=== PATIENT | female | born 1960 | race Caucasian/White ===

== ENCOUNTER 2021-01-10 17:13 | Inpatient (IN) | payer BC, SELFPAY ==
[2021-01-10] VITALS (7 sets, daily range): BP systolic 94–160; BP diastolic 65–81; PULSE 65–83; RESP 18–20; TEMP 36.4–36.7; O2SAT 93–100; BMI 21.4
--- NOTE | ~2021-01-10 | CT_ITS ---
EXAMINATION: CT brain wo con DATE: 01/10/2021 18:36 INDICATION: Altered level of consciousness, dizziness and recent falls TECHNIQUE: Computed tomography (CT) of the head was performed without intravenous contrast. The dose- length product was 605.33 mGy-cm. Automated exposure control and iterative reconstruction technique w ere employed. COMPARISON: None FINDINGS: No acute intracranial hemorrhage, infarction, mass or mass effect. No ventriculomegaly or m idline shift. Paranasal sinuses and mastoids are pneumatized. No depressed skull fractures. Generaliz ed atrophy. There are scattered mild periventricular and subcortical white matter changes, most likel y related to small vessel ischemic disease (microangiopathy). IMPRESSION: 1. No acute intracranial abnormality. Reviewed, dictated and finalized at location [employer]
--- NOTE | 2021-01-10 17:48 | ECG_ITS ---
Measurements Intervals [place] Rate: 72 P: 81 NM: 154 QRS: 69 QRSD: 76 T: 61 QT: 387 QTc: 424 Interpretive Statements SINUS RHYTHM INCOMPLETE RIGHT BUNDLE BRANCH BLOCK BORDERLINE ST-T WAVE ABNORMALITY- ANTEROLAT/INF LEADS BASELINE ARTIFACT- II, III, AVR, AVL, AVF BORDERLINE ECG Electronically Signed On 01-10-2021 20:16:56 [employer]ARN[employer] by Vick Cantor D.O.
[2021-01-10 18:22] LABS: Basophils Absolute Auto 0.06 K/mm3 (0.00-0.10); Basophils Percent Auto 0.7 % (0.0-1.0); Eosinophils Absolute Auto 0.04 K/mm3 (0.02-0.50); Eosinophils Percent Auto 0.5 % (1.0-6.0); Immature Granulocyte Absolute 0.02 K/mm3 (0.00-0.00); Immature Granulocyte Percent A 0.2 % (0.0-0.0); Lymphocytes Absolute Auto 2.16 K/mm3 (1.10-4.50); Lymphocytes Percent Auto 24.3 % (18.0-42.0); Mean Corpuscular HGB Conc 36.8 g/dL (32.0-36.0); Mean Corpuscular Hemoglobin 33.3 pg (27.0-31.0); Mean Corpuscular Volume 90.3 fL (78.0-102.0); Mean Platelet Volume 8.3 fl (9.2-11.8); Monocytes Absolute Auto 1.09 K/mm3 (0.10-0.90); Monocytes Percent Auto 12.3 % (2.0-11.0); Neutrophils Absolute Auto 5.5 K/mm3 (1.7-7.2); Platelet Count Result 420 K/mm3 (150-420); Red Blood Count 4.21 M/mm3 (4.20-5.40); Red Cell Distribution Width 14.3 % (11.6-14.4); White Blood Count 8.9 K/mm3 (4.8-10.8)
[2021-01-10 18:42] LABS: Alanine Aminotransferase 23 U/L (14-59); Albumin Level 4.2 g/dL (3.4-5.0); Alkaline Phosphatase 89 U/L (46-116); Anion Gap 10 mmol/L (8-16); Aspartate Amino Transferase 18 U/L (15-37); Bilirubin,Total 0.6 mg/dL (0.00-1.00); Blood Urea Nitrogen 14 mg/dL (7-18); Calcium 9.6 mg/dL (8.5-10.1); Carbon Dioxide 28 mmol/L (21-32); Chloride 76 mmol/L (98-108); Estimated CRCL calculation 46 ml/min; Estimated Glomerular Filt Rate 56; Glucose 92 mg/dL (70-99); Lactic Acid Reflex 1.1 mmol/L (0.4-2.0); Osmolality Calculated 238 mOsm/kg (285-295); Potassium 2.6 mmol/L (3.5-5.1); Total Protein 7.6 g/dL (6.4-8.2)
[2021-01-10 18:43] LABS: Troponin I 5.5 ng/L (0.00-60.4)
[2021-01-10 18:44] LABS: Ethanol 4 mg/dL (0-6)
[2021-01-10 18:48] LABS: Sodium 114 mmol/L (136-145)
[2021-01-10] MEDS: POTASSIUM CHLORIDE 20 MEQ TABLET 40 MEQ PO (19:40)
--- NOTE | 2021-01-10 20:10 | ADMGEN ---
This patient, Albert Zhao, was admitted to 2nd Floor Room 209-1. Patient oriented to hospital policies and general routines including ID bracelet, bed and alarms, visiting hours, pain management, procedures, bathroom and other care routines, personal items, smoking policy, room service/diet. Patient encouraged to report perceived risks to care and to ask questions if they do not understand what they are told or what they should do.
--- NOTE | 2021-01-10 20:13 | PC.NURSE ---
telemetry applied and alarms activated
--- NOTE | 2021-01-10 20:23 | ED.DIZZY ---
HPI - Dizziness General Chief Complaint: Dizziness Stated Complaint: dizzy Source: patient Mode of arrival: ambulatory Limitations: no limitations History of Present Illness HPI Narrative: Pt came to ED after hx of stopping drinking about 3 days ago. She states today she was walking and became very weak and she my body just went a different way and ended up on the ground. She tells me she has been more confused than normal, and even drove down the road on the wrong side. She just lost her brother a few days ago and has his on . She hasnt drank in last 3 days, and family reports is is defintely an alcoholic. SHe is generally a poor historian, and mildly difficult to obtain a history from. SHe is alert, and states she never passed out, she was concious the entire time. But she does state that position changes make her dizzy. MD elicited complaint: lightheadedness and difficulty walking Onset (ago): hour(s) Timing: sudden onset Severity: moderate Description: lightheadedness and difficulty walking Context: other (quit drinking etoh, but pt states she drinks 8-10 water bottles a day+) History of similar symptoms: No Exacerbating factors: change in body position and standing Relieving factors: remaining still Associated symptoms: denies other symptoms Related Data Home Medications Medication Instructions Recorded Confirmed lisinopril-hydrochlorothiazide 1 tablet PO DAILY 01/10/21 01/10/21 metoprolol tartrate 50 mg PO Q12H 01/10/21 01/10/21 Allergies Allergy/AdvReac Type Severity Reaction Status Date / Time Penicillins Allergy Intermediate Unknown Verified 01/10/21 17:51 Review of Systems Constitutional: Constitutional: Reports no additional constitutional complaints and Reports weakness Eyes: Eyes: Reports no additional eye complaints ENT: Reports system reviewed and no additional complaints, except as documented, Denies dysphagia, Reports dizziness, Denies epistaxis, Denies nasal congestion and Denies sore throat Cardiovascular: Cardiovascular: Reports no additional cardiovascular complaints, Denies chest pain, Denies rapid heart rate, Denies radiating jaw, neck or arm pain and Denies slow heart rate Respiratory: Respiratory: Reports no additional respiratory complaints, Denies chest congestion, Denies cough, Denies dyspnea and Denies wheezing Gastrointestinal: Gastrointestinal: Denies abdominal pain, Denies bloating, Denies constipation, Denies heartburn, Denies diarrhea, Denies nausea and Denies vomiting Genitourinary: Genitourinary: Reports no additional female genitourinary complaints Musculoskeletal: Musculoskeletal: Reports no additional musculoskeletal complaints Comments: muscles just dont act right Integumentary/Breasts: Skin/Breast: Reports system reviewed and no additional complaints, except as docu Neurologic: Reports system reviewed and no additional complaints, except as documented Psychiatric: Psychiatric: Reports no additional psychiatric complaints Endocrine: Endocrine: Reports no additional endocrine complaints Hematologic/Lymphatic: Hematologic/Lymphatic: Reports no additional hematologic/lymphatic complaints Allergic/Immunologic: Allergic/Immunologic: Reports no additional allergic/immunologic complaints PMFSH Past Medical History Medical History HTN (hypertension) Social History Social History (Updated 01/10/21 @ 20:30 by Yana Perea MD) Alcohol intake: current Substance use: unknown Living arrangements: alone Gender identity (if verbalized by the patient): Female Exam Const: General: healthy appearing, no acute distress and alert; No confusion Nutritional Appearance: well nourished and thin Orientation/consciousness: patient oriented x3 Limitations: No altered mental status HENMT: Head: normal to inspection Ears: TM abnormal Mouth: Yes Normal oral and palatal mucosa present and Yes m
[2021-01-10] MEDS: LACTATED RINGERS 1,000 ML 125 ML IV CONT (20:45)
[2021-01-10] MEDS: METOPROLOL TARTRATE 50 MG TAB PO (21:08)
--- NOTE | 2021-01-11 01:50 | PC.NURSE ---
pt up to bsc, had liquid brown stool, pt states she had not had a bm for several days so she took a stool softener prior to coming to hospital. Pt denies any other needs at this time, iv fluids infusing per order, tele continues to monitor and alarms on
[2021-01-11 03:37] VITALS: BP 95/55; PULSE 65; RESP 18; TEMP 36.8; O2SAT 97
[2021-01-11 03:50] LABS: Add Urine Microscopic? NO; Appearance Urine Clear (Clear); Bilirubin Urine Negative (Negative); Blood Urine Negative (Negative); Color Urine Yellow (Yellow); Glucose Urine UA Negative (Negative); Ketones Urine Negative (Negative); Leukocyte Esterase Ur Negative LEU/UL (Negative); Nitrate Urine Negative (Negative); Protein Urine Negative (Negative); Specific Grav Ur <= 1.005 (1.010-1.020); Urobilinogen Urine 0.2 mg/dL (0.2-1.0)
[2021-01-11] MEDS: LACTATED RINGERS 1,000 ML 125 ML IV CONT (04:35)
[2021-01-11 05:40] LABS: Anion Gap 9 mmol/L (8-16); Blood Urea Nitrogen 11 mg/dL (7-18); Calcium 9.4 mg/dL (8.5-10.1); Carbon Dioxide 29 mmol/L (21-32); Chloride 86 mmol/L (98-108); Estimated CRCL calculation 48 ml/min; Estimated Glomerular Filt Rate 59; Glucose 97 mg/dL (70-99); Osmolality Calculated 257 mOsm/kg (285-295); Potassium 3.4 mmol/L (3.5-5.1); Sodium 124 mmol/L (136-145)
[2021-01-11 07:45] VITALS: BP 98/58; PULSE 77; RESP 18; TEMP 36.8; O2SAT 97
[2021-01-11] MEDS: POTASSIUM CHLORIDE 20 MEQ TABLET 40 MEQ PO ×2 (09:08→11:04)
[2021-01-11 11:48] VITALS: BP 112/61; PULSE 66; PULSE 67; RESP 18; TEMP 36.9; O2SAT 95
--- NOTE | 2021-01-11 12:09 | PM.IMHP ---
H&P: HPI History of Present Illness Date/Time: 01/11/21 12:09 <BEVERLY De La Cruz - Last Filed: 01/11/21 13:27> Chief Complaint: Altered mental status, generalized weakness <BEVERLY De La Cruz - Last Filed: 01/11/21 13:27> Narrative: Albert Zhao is a 60 year old female that presented to ED with altered mental status, generalized weakness post fall. Patient has a past medical medical history of hypertension and alcohol abuse. Patient noted that for the past 2weeks she has had nausea vomiting and diarrhea with a decreased appetite due to a viral infection. Patient noted that she did visit her primary care physician and she was given medication she is unsure of the medication she received. I am awaiting a call back from her primary care physician. Patient noted that for the last several days she has been confused with weakness. On admission patient sodium was 114, potassium 2.6, chloride 76. All other labs within normal limits including lactic acid including alcohol level, CT of the head unremarkable, EKG sinus rhythm. Patient is being allowed admitted for electrolyte imbalance and dehydration with altered mental status. During this assessment patient know that her condition has greatly improved she is alert and orientated x1 and her weakness has improved. She also notes that her appetite has improved as well. I did have a discussion with her son and updated him on her plan of care. The patient denies SOB, CP, palpitation, extremity numbness, lightheadedness, dizziness, constipation, diarrhea, chills, or fever. Due to hypotension plan to hold patient hypertension medication. Nurse informed me that patient had home medication and had to take her home medication which included lisinopril with hydrochlorothiazide and metoprolol. Patient sodium level may worsen due to hydrochlorothiazide we will closely monitor. Spoke with patient's primary care physician office patient was recently seen for viral gastroenteritis no medication prescribed. Disposition: Plan to discharge patient tomorrow morning if her electrolytes are balanced. Patient had a recent in the family and she needs to attend a weight and . <BEVERLY De La Cruz - Last Filed: 01/11/21 13:27> Review of Systems Review of Systems: All systems reviewed & are unremarkable except as noted in HPI and below (12 point system review) <BEVERLY De La Cruz - Last Filed: 01/11/21 13:27> [facility], [facility] Past Medical History Medical History: Medical History (Updated 01/11/21 @ 13:07 by BEVERLY De La Cruz) HTN (hypertension) <BEVERLY De La Cruz - Last Filed: 01/11/21 13:27> Social History Social History: Social History (Updated 01/10/21 @ 20:30 by Yana Perea MD) Smoking packs per day: 1 Smoking cigarettes per day: 20.0 Years smoked: 30 Smoking pack-years: 30.00 Smoking status: Current every day smoker Tobacco type: cigarettes Second hand tobacco smoke exposure: Yes Alcohol intake: current Drinks per week: 8 Substance use: never Living arrangements: alone Gender identity (if verbalized by the patient): Female Spiritual care concerns: No <BEVERLY De La Cruz - Last Filed: 01/11/21 13:27> Meds Home Medications and Allergies Home medications: Home Medications Medication Instructions Recorded Confirmed Type lisinopril-hydrochlorothiazide 1 tablet PO DAILY 01/10/21 01/10/21 History metoprolol tartrate 50 mg PO Q12H 01/10/21 01/10/21 History <BEVERLY De La Cruz - Last Filed: 01/11/21 13:27> Allergies/Adverse reactions: Allergies Allergy/AdvReac Type Severity Reaction Status Date / Time Penicillins Allergy Intermediate Unknown Verified 01/10/21 17:51 <BEVERLY De La Cruz - Last Filed: 01/11/21 13:27> Vital Signs Vital Signs - 24 hr 01/10/21 17:41 01/10/21 18:12 01/10/21 19:59 Temperature 98.0 F Pulse Rate 79 73 74 Respiratory
--- NOTE | 2021-01-11 14:30 | PC.NURSE ---
Up to bathroom with stand by assist, tolerated well
[2021-01-11 16:00] VITALS: BP 87/52; PULSE 69; PULSE 70; RESP 18; TEMP 37.1; O2SAT 99
[2021-01-11 18:27] LABS: Troponin I 4.7 ng/L (0.00-60.4)
[2021-01-11 18:40] LABS: Alanine Aminotransferase 24 U/L (14-59); Albumin Level 3.7 g/dL (3.4-5.0); Alkaline Phosphatase 84 U/L (46-116); Anion Gap 10 mmol/L (8-16); Aspartate Amino Transferase 17 U/L (15-37); Bilirubin,Total 0.4 mg/dL (0.00-1.00); Blood Urea Nitrogen 9 mg/dL (7-18); Carbon Dioxide 27 mmol/L (21-32); Chloride 91 mmol/L (98-108); Estimated CRCL calculation 50 ml/min; Estimated Glomerular Filt Rate > 60; Glucose 126 mg/dL (70-99); Osmolality Calculated 266 mOsm/kg (285-295); Potassium 3.9 mmol/L (3.5-5.1); Sodium 128 mmol/L (136-145); Total Protein 6.9 g/dL (6.4-8.2)
[2021-01-11 19:26] VITALS: PULSE 77
[2021-01-11 19:42] VITALS: BP 125/74; PULSE 76; RESP 18; TEMP 36.8; O2SAT 98
[2021-01-11] MEDS: METOPROLOL TARTRATE 50 MG TAB PO (20:51)
[2021-01-12] VITALS: BP 81/72; PULSE 66; PULSE 72; RESP 20; TEMP 36.9; O2SAT 93
[2021-01-12 03:58] VITALS: PULSE 68
[2021-01-12 04:00] VITALS: BP 107/74; PULSE 65; RESP 18; TEMP 37.1; O2SAT 97
[2021-01-12 05:48] LABS: Hematocrit 40.5 % (35.0-49.0); Hemoglobin 13.4 g/dL (12.0-15.0); Mean Corpuscular HGB Conc 33.1 g/dL (32.0-36.0); Mean Corpuscular Hemoglobin 32.8 pg (27.0-31.0); Mean Platelet Volume 8.6 fl (9.2-11.8); Platelet Count Result 422 K/mm3 (150-420); Red Blood Count 4.09 M/mm3 (4.20-5.40); Red Cell Distribution Width 14.9 % (11.6-14.4); White Blood Count 6.8 K/mm3 (4.8-10.8)
[2021-01-12 06:03] LABS: Alanine Aminotransferase 25 U/L (14-59); Albumin Level 3.8 g/dL (3.4-5.0); Alkaline Phosphatase 76 U/L (46-116); Anion Gap 11 mmol/L (8-16); Aspartate Amino Transferase 23 U/L (15-37); Bilirubin,Total 0.4 mg/dL (0.00-1.00); Blood Urea Nitrogen 7 mg/dL (7-18); Calcium 9.1 mg/dL (8.5-10.1); Carbon Dioxide 24 mmol/L (21-32); Chloride 91 mmol/L (98-108); Estimated CRCL calculation 58 ml/min; Estimated Glomerular Filt Rate > 60; Glucose 88 mg/dL (70-99); Osmolality Calculated 259 mOsm/kg (285-295); Potassium 4.6 mmol/L (3.5-5.1); Sodium 126 mmol/L (136-145); Total Protein 6.6 g/dL (6.4-8.2)
[2021-01-12 08:00] VITALS: BP 121/74; PULSE 69; PULSE 74; RESP 18; TEMP 36.7; O2SAT 100
--- NOTE | 2021-01-12 08:32 | PM.DS ---
DS: Admitting Diagnosis Admitting Diagnosis Admitting Diagnosis: Electrolyte imbalance DS: Discharge Diagnosis Discharge Diagnosis (1) Acute hyponatremia: Code(s): E87.1 - Hypo-osmolality and hyponatremia Status: Acute Assessment and Plan: Improved Secondary to dehydration caused by nausea vomiting diarrhea Patient received IV fluid in the ED per Dr. Gallegos IV fluid DC he will monitor CMP every 6hr and treat as needed Sodium-->114-->124-->128-->126 Patient will discharge home with sodium and potassium supplement for 7 days of repeat CMP in 3 days with results going to her primary care physician (2) Acute hypokalemia: Code(s): E87.6 - Hypokalemia Status: Acute Assessment and Plan: Resolved Secondary to dehydration caused by nausea vomiting diarrhea Patient received IV fluid in the ED per Dr. 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, in remission Status: Acute Assessment and Plan: Alcohol level within normal limits Patient denies any history of alcohol abuse (4) Dehydration: Code(s): E86.0 - Dehydration Status: Acute Assessment and Plan: Resolved Secondary to nausea vomiting diarrhea patient previously diagnosed with viral gastroenteritis by primary care physician (5) AMS (altered mental status): Code(s): R41.82 - Altered mental status, unspecified Status: Acute Assessment and Plan: Resolved Secondary to dehydration and electrolyte imbalance Treat underlying condition (6) HTN (hypertension): Code(s): I10 - Essential (primary) hypertension Status: Acute Assessment and Plan: Stable Patient with discharge home with lisinopril I have discontinue hydrochlorothiazide to prevent electrolyte depletion Patient will follow up with her primary care physician will adjust medication if needed DS: Summary Hospital Course Hospital Course: Albert Zhao is a 60 year old female that presented to ED with altered mental status, generalized weakness . Patient has a past medical history of hypertension . Patient was recently at her primary care physician office and was diagnosed with viral gastroenteritis. On admission patient sodium was 114, potassium 2.6, chloride 76. All other labs within normal limits including lactic acid including alcohol level, CT of the head unremarkable, EKG sinus rhythm. Patient was admitted for electrolyte imbalance and dehydration with altered mental status. During this assessment patient know that her condition has greatly improved she is alert and orientated x3 and her weakness has resolved. The patient denies SOB, CP, palpitation, extremity numbness, lightheadedness, dizziness, constipation, diarrhea, chills, or fever. Patient agrees that her condition has improved and she is ready for discharge Disposition: Patient will discharge home today with sodium and potassium supplement for 7 days and repeat CMP in 3 days with results going to her primary care physician. Her primary care physician was informed of her condition yesterday and will monitor her closely. She will also discharged with Zofran and Imodium if she has any future diarrhea. Time Spent with Patient Time attestation: Total time spent providing and/or coordinating discharge services: Exam Narrative: Exam Narrative: GENERAL: This is a well-nourished, well-developed patient, in no apparent distress. HEAD: normocephalic, atraumatic. EYES: PERRL. Sclera clear/white. Vision is grossly intact. EARS: External ears normal, auditory canals clear and without drainage, TMs normal without perforation. Hearing grossly intact. NOSE: External nose normal with no obvious nasal discharge, nares without redness, no rhinorrhea. THROAT: Mucous membranes moist, posterior pharynx clear. NECK: Neck supple, non-tende
--- NOTE | 2021-01-12 09:09 | PC.NURSE ---
Telemetry removed. IV removed,catheter intact. Patient refused morning medications due to being discharged home
--- NOTE | 2021-01-12 09:54 | PC.NURSE ---
Patient discharged to home
--- NOTE | 2021-01-18 10:51 | PC.NURSE ---
Unable to contact for discharge call back.
== END 2021-01-12 09:20 | disposition home or self-care (01) | DRG 641 ==
LOC: CHSED 17:18 → CHS2ND 19:30
PROVIDERS: Nurse Practitioner; Admitting Provider Emergency Medicine; Emergency Provider Emergency Medicine; PCP Physician Assistant; Visit Provider Emergency Medicine
DX: E87.1 Hypo-osmolality and hyponatremia (principal); E87.6 Hypokalemia; I10 Essential (primary) hypertension; F10.10 Alcohol abuse, uncomplicated; E86.0 Dehydration; F17.210 Nicotine dependence, cigarettes, uncomplicated; I95.9 Hypotension, unspecified
CPT/HCPCS: 36415; 70450; 80048; 80053; 80307; 81003; 83605; 84484; 85025; 85027; 93005; 97161; 97165; 99285; A9270; J7120